=== PATIENT | female | born 1990 | race Caucasian/White ===

== ENCOUNTER 2017-05-31 12:55 | Emergency (ER) | payer MEDICAID ==
[2017-05-31 13:24] VITALS: BP 118/62
--- NOTE | 2017-05-31 13:42 | ER Document Report ---
ED Medical Screen (RME) - General Chief Complaint: Palpitations Stated Complaint: POSSIBLE HEART PALPITATIONS Time Seen by Provider: 05/31/17 13:21 Notes: Patient states she has not had a period in approximately 1 month. She states that she did find out that she was several weeks ago. She states today while walking she suddenly became very short of breath and had a heart racing. No history of DVTs or pulmonary embolisms. She has not had any significant abdominal pain or vaginal discharge or bleeding. She has not seen an AVIATION CONSULTANT for this at this time. TRAVEL OUTSIDE OF THE [place] IN LAST 30 DAYS: No - Related Data Allergies/Adverse Reactions: No Known Allergies Allergy (Verified 05/31/17 13:14) Past Medical History Neurological Medical History: Reports: Hx Migraine Renal/ Medical History: Reports: Hx Ovarian Cysts. Denies: Hx Peritoneal Dialysis Psychiatric Medical History: Reports: Hx Anxiety Past Surgical History: Reports: Hx Appendectomy, Hx Section - x3, Hx Orthopedic Surgery - right ankle - Immunizations Immunizations up to date: Yes Hx Diphtheria, Pertussis, Tetanus Vaccination: Yes Physical Exam - Vital signs Vitals: Temp Pulse Resp BP Pulse Ox 98.8 F 99 16 118/62 99 05/31/17 13:15 05/31/17 13:15 05/31/17 13:15 05/31/17 13:15 05/31/17 13:15 Course - Vital Signs Vital signs: Temp Pulse Resp BP Pulse Ox 98.8 F 99 16 118/62 99 05/31/17 13:15 05/31/17 13:15 05/31/17 13:15 05/31/17 13:15 05/31/17 13:15
[2017-05-31 14:02] LABS: ABSOLUTE LYMPHOCYTES (AUTO) 2.2 10^3/uL (0.5-4.7); ABSOLUTE MONOCYTES (AUTO) 0.6 10^3/uL (0.1-1.4); ABSOLUTE NEUT (AUTO) 10.8 10^3/uL (1.7-8.2); BASOPHILS % (AUTO) 0.1 % (0-2); EOSINOPHILS % (AUTO) 0.3 % (0-6); HEMATOCRIT 28.4 % (36.0-47.0); HEMOGLOBIN 9.4 g/dL (12.0-15.5); HGB HCT DIFFERENCE -0.2; LYMPHOCYTES % (AUTO) 16.1 % (13-45); MEAN CORPUSCULAR HEMOGLOBIN 26.3 pg (27.0-33.4); MEAN CORPUSCULAR HGB CONC 33.1 g/dL (32.0-36.0); MEAN CORPUSCULAR VOLUME 80 fl (80-97); MONOCYTES % (AUTO) 4.3 % (3-13); RED BLOOD COUNT 3.56 10^6/uL (3.72-5.28); RED CELL DISTRIBUTION WIDTH 13.7 % (11.5-14.0); SEGMENTED NEUTROPHILS % (AUTO) 79.2 % (42-78); WHITE BLOOD COUNT 13.7 10^3/uL (4.0-10.5)
[2017-05-31 14:08] LABS: APPEARANCE,URINE SLIGHTLY-CLOUDY; BILIRUBIN,URINE NEGATIVE (NEGATIVE); GLUCOSE, URINE 50 mg/dL (NEGATIVE); KETONES,URINE TRACE mg/dL (NEGATIVE); LEUKOCYTE ESTERASE,URINE SMALL (NEGATIVE); NITRITE,URINE NEGATIVE (NEGATIVE); PROTEIN,URINE NEGATIVE (NEGATIVE); URINE SPECIFIC GRAVITY 1.018; UROBILINOGEN,URINE NEGATIVE mg/dL (<2.0)
[2017-05-31 14:18] LABS: ALANINE AMINOTRANSFERASE 15 U/L (9-52); ALBUMIN 3.4 g/dL (3.5-5.0); ALKALINE PHOSPHATASE 88 U/L (38-126); ANION GAP 9 (5-19); ASPARTATE AMINO TRANSFERASE 11 U/L (14-36); BILIRUBIN,DIRECT 0.2 mg/dL (0.0-0.4); BILIRUBIN,TOTAL 0.3 mg/dL (0.2-1.3); BLOOD UREA NITROGEN 6 mg/dL (7-20); CALCIUM 8.7 mg/dL (8.4-10.2); CARBON DIOXIDE 22 mmol/L (22-30); CHLORIDE 107 mmol/L (98-107); CREATININE RESULT 0.49 mg/dL (0.52-1.25); GLUCOSE 107 mg/dL (75-110); POTASSIUM 4.3 mmol/L (3.6-5.0); SODIUM 138.4 mmol/L (137-145); TOTAL PROTEIN 6.1 g/dL (6.3-8.2)
[2017-05-31] MEDS ORDERED: NORMAL SALINE 1000 ML 1,000 ML IV ONE (15:12)
[2017-05-31] MEDS ORDERED: PRENATAL VITAMIN W-O CA NO5/FE FUMARATE/FA CAPSULE PO ONE (15:31)
--- NOTE | 2017-05-31 17:35 | RADIOLOGY REPORT (SQ) ---
EXAM DESCRIPTION: U/S OB 14+ TRNABD 1GES W/O DOP COMPLETED DATE/TIME: 05/31/2017 5:07 pm REASON FOR STUDY: , no idea how far along COMPARISON: None. TECHNIQUE: Static and Dynamic grayscale imaging performed of gravid uterus using transabdominal appr oac. Additional selected color Doppler and spectral images recorded. All stored on PACS. LIMITATIONS: Study is limited due to the advanced gestational age and position. FINDINGS: EGA: 32 weeks 4 days SWAPNIL: 07/22/2007 EFW: 2130 +/- 315 g PERCENTILE: 90 ROSE: 14.9 PLACENTA: Anterior PRESENTATION: Cephalic. ANATOMY: HEART RATE: 131 beats per minute. FOUR CHAMBER HEART: Not visualized THREE VESSEL CORD: Yes. CORD INSERTION: Visualized. KIDNEYS AND BLADDER: Visualized. Appear normal. STOMACH: Visualized. Appears normal. SPINE: Normal as visualized. BRAIN AND LATERAL VENTRICLES: Not visualized OTHER: No other significant finding. MATERNAL ADNEXA: Maternal ovaries not visualized. CERVICAL LENGTH: 5.0 cm Closed. OTHER: No other significant finding. IMPRESSION: LIVING INTRAUTERINE . ESTIMATED GESTATIONAL AGE 32 weeks 4 days NO VISUALIZED ANOMALIES. Trimester of : Third trimester - 28 weeks to delivery. TECHNICAL DOCUMENTATION: JOB ID: [id number] [email or web address]- All Rights Reserved
--- NOTE | 2017-05-31 17:41 | ER Document Report ---
ED General - General Chief Complaint: Palpitations Stated Complaint: POSSIBLE HEART PALPITATIONS Time Seen by Provider: 05/31/17 13:21 Mode of Arrival: Ambulatory Information source: Patient Notes: Patient is a 26-year-old female who presents to the ER today for shortness of breath, racing heart rate and feeling shaky. Patient does not know how far along she is but states that her last menstrual period was October 31. She has not had any care nor she taking any vitamins. She denies any history of pulmonary embolism or DVT, recent travel. TRAVEL OUTSIDE OF THE [place] IN LAST 30 DAYS: No - Related Data Allergies/Adverse Reactions: No Known Allergies Allergy (Verified 05/31/17 13:14) Past Medical History - General Information source: Patient - Social History Smoking Status: Unknown if Ever Smoked Family History: Reviewed & Not Pertinent Patient has suicidal ideation: No Patient has homicidal ideation: No Neurological Medical History: Reports: Hx Migraine Renal/ Medical History: Reports: Hx Ovarian Cysts. Denies: Hx Peritoneal Dialysis Psychiatric Medical History: Reports: Hx Anxiety Past Surgical History: Reports: Hx Appendectomy, Hx Section - x3, Hx Orthopedic Surgery - right ankle - Immunizations Immunizations up to date: Yes Hx Diphtheria, Pertussis, Tetanus Vaccination: Yes Review of Systems - Review of Systems Constitutional: No symptoms reported EENT: No symptoms reported Cardiovascular: See HPI Respiratory: No symptoms reported Gastrointestinal: No symptoms reported Genitourinary: No symptoms reported Female Genitourinary: See HPI Musculoskeletal: No symptoms reported Skin: No symptoms reported Hematologic/Lymphatic: No symptoms reported Neurological/Psychological: No symptoms reported Physical Exam - Vital signs Vitals: Temp Pulse Resp BP Pulse Ox 98.8 F 99 16 118/62 99 05/31/17 13:15 05/31/17 13:15 05/31/17 13:15 05/31/17 13:15 05/31/17 13:15 - Notes Notes: PHYSICAL EXAMINATION: GENERAL: Well-appearing and in no acute distress. HEAD: Atraumatic, normocephalic. EYES: Pupils equal round and reactive to light, extraocular movements intact, sclera anicteric, conjunctiva are normal. NECK: Normal range of motion, supple without lymphadenopathy LUNGS: CTAB and equal. No wheezes rales or rhonchi. HEART: Regular rate and rhythm without murmurs ABDOMEN: gravid abdomen, no tenderness. No guarding, no rebound BACK: no vertebral tenderness, normal ROM GI/: no CVA tenderness EXTREMITIES: Normal range of motion, no pitting edema. No cyanosis. NEUROLOGICAL: Cranial nerves grossly intact. Normal sensory/motor exams. PSYCH: Normal mood, normal affect. SKIN: Warm, Dry, normal turgor, no rashes or lesions noted Course - Re-evaluation Re-evalutation: 05/31/17 17:39 Plan reveals that patient is 32 weeks with a closed cervix. I did advise patient on normal symptoms of . I did prescribe vitamins for patient as her hemoglobin is 9.4. I do believe this is anemia in . 05/31/17 17:39 - Vital Signs Vital signs: Temp Pulse Resp BP Pulse Ox 98.8 F 99 16 118/62 99 05/31/17 13:15 05/31/17 13:15 05/31/17 13:15 05/31/17 13:15 05/31/17 13:15 - Laboratory Result Diagrams: 05/31/17 13:45 05/31/17 13:45 Laboratory results interpreted by me: 05/31/17 05/31/17 05/31/17 13:45 13:45 13:45 WBC 13.7 H RBC 3.56 L Hgb 9.4 L Hct 28.4 L MCH 26.3 L Seg Neutrophils % 79.2 H Absolute Neutrophils 10.8 H BUN 6 L Creatinine 0.49 L AST 11 L Total Protein 6.1 L Albumin 3.4 L Beta HCG, Quant Urine Glucose (UA) 50 H Urine Ketones TRACE H Ur Leukocyte Esterase SMALL H 05/31/17 13:45 WBC RBC Hgb Hct MCH Seg Neutrophils % Absolute Neutrophils BUN Creatinine AST Total Protein Albumin Beta HCG, Quant 08487.00 H Urine Glucose (UA) Urine Ketones Ur Leukocyte Esterase Discharge - Discharge Clinical Impression: Anemia affecting Qualifiers: Trimester: third trimester Qualified Code(s): O99.013 - Anemia complicating , third trimester Condition: Stable Disposition: HOME, SELF-CARE Additional Instructions: Return immediately for any new or worsening symptoms. Follow up with women's health, call tomorrow to make followup appointment. Prescriptions: Pnv No.121/Iron/Folic Acid [ Multivitamin Tablet] 1 each PO DAILY #30 tablet Referrals: [facility] [Provider Group] - Follow up as needed
--- NOTE | 2017-06-01 16:23 | EKG REPORT ---
SEVERITY:- NORMAL ECG - SINUS RHYTHM : Confirmed by: Hoda Cooper MD 01-Jun-2017 16:22:32
== END 2017-05-31 18:03 | disposition home or self-care (01) ==
LOC: ER 12:55
DX: O99.013 Anemia complicating pregnancy, third trimester (principal); D64.9 Anemia, unspecified; O09.33 Supervision of pregnancy with insufficient antenatal care, third trimester; Z90.49 Acquired absence of other specified parts of digestive tract; Z3A.32 32 weeks gestation of pregnancy; Z87.42 Personal history of other diseases of the female genital tract
CPT/HCPCS: 93005; 99285; 36415; 84702; 85025; 80053; 81001; 76805; 93010; J7030

== ENCOUNTER 2017-07-19 09:00 | Outpatient (CLI) | payer MEDICAID ==
[2017-07-19 09:37] LABS: APPEARANCE,URINE CLOUDY; BILIRUBIN,URINE NEGATIVE (NEGATIVE); GLUCOSE, URINE NEGATIVE (NEGATIVE); KETONES,URINE NEGATIVE (NEGATIVE); LEUKOCYTE ESTERASE,URINE SMALL (NEGATIVE); NITRITE,URINE NEGATIVE (NEGATIVE); PROTEIN,URINE NEGATIVE (NEGATIVE); URINE SPECIFIC GRAVITY 1.015; UROBILINOGEN,URINE NEGATIVE mg/dL (<2.0)
[2017-07-19 09:53] LABS: URINE BARBITURATES SCREEN NEGATIVE; URINE METHADONE SCREEN NEGATIVE; URINE OPIATES LOW NEGATIVE; URINE PHENCYCLIDINE SCREEN NEGATIVE
--- NOTE | 2017-07-19 10:30 | Non Stress Test Report ---
Non Stress Test Datetime Report Generated by CPN: 07/19/2017 10:29 DEMOGRAPHIC EGA NST: 39.4 INDICATION Indication for Study: Ordered by Provider Indication for Study (NST) Other: LC MONITORING Monitor Explained: Monitor Explained; Test Explained; Patient Verbalized Understanding Time on Monitor: 07/19/2017 09:14 Time off Monitor: 07/19/2017 09:57 Time off Monitor: 07/19/2017 10:14 NST Duration: 43 NST INTERVENTIONS NST Interventions: PO Hydration; IV Fluids Physician Notified NST: Avery BABY A: [id number] BABY A Movement : Present Contraction Frequency : rare FHR Baseline : 140 Accelerations : 15X15 Decelerations : None Variability : Moderate 6-25bpm NST Review: Meets Criteria for Reactive NST NST Review and Verified By : Luis Avila [facility] NST Results: Reactive NST REPORT Report Trigger: Send Report
== END 2017-07-19 10:25 | disposition home or self-care (01) ==
LOC: LC 09:00
PROVIDERS: ATTEND Obstetrics & Gynecology
PROC: 4A1HXCZ Monitoring of Products of Conception, Cardiac Rate, External Approach (ICD-10-PCS; principal; 2017-07-19)
DX: O47.1 False labor at or after 37 completed weeks of gestation (principal); Z3A.39 39 weeks gestation of pregnancy
CPT/HCPCS: 59025; 80307; 81005

== ENCOUNTER 2017-07-21 01:04 | Inpatient (IN) | payer MEDICAID ==
[2017-07-21] MEDS ORDERED: OXYTOCIN 10 UNIT/ML VIAL ONE (01:26)
[2017-07-21] MEDS ORDERED: MIDAZOLAM 2 MG/2 ML INJ ONE ×2 (01:27→03:03)
[2017-07-21] MEDS ORDERED: FENTANYL CITRATE INJ/PF 100 MCG/2 ML AMPUL ONE (01:27)
[2017-07-21] MEDS ORDERED: PHENYLEPHRINE HCL INJ/PF 10 MG/1 ML SDV ONE (01:27)
[2017-07-21] MEDS ORDERED: OXYTOCIN/NORMAL SALINE 20 UNIT/1,000 ML RTUINJ ONE (01:27)
[2017-07-21] MEDS ORDERED: ONDANSETRON HCL INJ/PF 4 MG/2 ML SDV ONE (01:28)
[2017-07-21] MEDS ORDERED: ACETAMINOPHEN 100 ML IV ONE (01:28)
[2017-07-21] MEDS ORDERED: CEFAZOLIN 2 GM/D5W RTU 2 GM/50 ML RTUPB IV ONE (01:49)
[2017-07-21] MEDS ORDERED: CITRIC ACID/SODIUM CITRATE ORAL SOLN 15 ML UDCUP ONE (01:49)
[2017-07-21 02:07] LABS: ABSOLUTE EOSINOPHILS # (AUTO) 0.1 10^3/uL (0.0-0.6); ABSOLUTE LYMPHOCYTES (AUTO) 2.9 10^3/uL (0.5-4.7); ABSOLUTE MONOCYTES (AUTO) 0.9 10^3/uL (0.1-1.4); ABSOLUTE NEUT (AUTO) 7.9 10^3/uL (1.7-8.2); BASOPHILS % (AUTO) 0.2 % (0-2); EOSINOPHILS % (AUTO) 0.7 % (0-6); HEMATOCRIT 32.9 % (36.0-47.0); HEMOGLOBIN 10.7 g/dL (12.0-15.5); HGB HCT DIFFERENCE -0.8; LYMPHOCYTES % (AUTO) 24.6 % (13-45); MEAN CORPUSCULAR HEMOGLOBIN 24.7 pg (27.0-33.4); MEAN CORPUSCULAR HGB CONC 32.5 g/dL (32.0-36.0); MEAN CORPUSCULAR VOLUME 76 fl (80-97); MONOCYTES % (AUTO) 7.4 % (3-13); RED BLOOD COUNT 4.31 10^6/uL (3.72-5.28); RED CELL DISTRIBUTION WIDTH 15.5 % (11.5-14.0); SEGMENTED NEUTROPHILS % (AUTO) 67.1 % (42-78); WHITE BLOOD COUNT 11.8 10^3/uL (4.0-10.5)
--- NOTE | 2017-07-21 03:37 | Brief Operative Note ---
BRIEF OPERATIVE REPORT DATE OF SURGERY: 07/21/17 TIME OF SURGERY: 03:30 PREOPERATIVE DIAGNOSIS: PROM, meconium, H/o c/s x 4, , H/o C/S x4, Non reassuring FHR tracing with minimal variability, Undesired Fertilty. POSTOPERATIVE DIAGNOSIS: CINDY - delivered SURGEON: BRANDY MURPHY FINDINGS: Normal uterus, normal tubes, normal ovaries. Weight 8#4oz (3730g), Apgars 8/9, rectus muscles adhered to subcutaneous tissue. Bladder adhesions and omental adhesions to uterus. Vertex presentation, no nuchal cord. IVF 2000ml, EBL 600ml, UOP 200ml COMPLICATIONS: None ESTIMATED BLOOD LOSS: 600ml TISSUE REMOVED OR ALTERED: placenta and cord sent to pathology TECHNICAL PROCEDURE: Repeat LTCS with BTL with filschie x 2 bilaterally
[2017-07-21] MEDS ORDERED: ACETAMINOPHEN 100 ML IV PRN (03:38)
[2017-07-21] MEDS ORDERED: ACETAMINOPHEN 325 MG TABLET PO PRN (03:38)
[2017-07-21] MEDS ORDERED: PROMETHAZINE HCL INJ 25 MG/1 ML VIAL IV PRN (03:38)
[2017-07-21] MEDS ORDERED: MEASLES,MUMPS&RUBELLA VACC/PF 0.5 ML VIAL SUBCUT PRN (03:38)
[2017-07-21] MEDS ORDERED: OXYTOCIN/NORMAL SALINE 20 UNIT/1,000 ML RTUINJ IV PRN (03:38)
[2017-07-21] MEDS ORDERED: DIPH/PERTUSS(ACELL)/TETANUS VAC/PF 0.5 ML SYR (>=10YO) IM PRN (03:38)
[2017-07-21] MEDS ORDERED: OXYCODONE-ACETAMINOPHEN 5-325 MG TABLET PO PRN (03:38)
[2017-07-21] MEDS ORDERED: DIPHENHYDRAMINE HCL 50 MG/ML VIAL ONE (04:16)
[2017-07-21] MEDS ORDERED: MORPHINE SULFATE 10 MG/ML INJ ONE (05:14)
--- NOTE | 2017-07-21 06:14 | Admission Physical ---
Datetime Report Generated by CPN: 07/21/2017 06:14 CURRENT ADMISSION Chief Complaint: Uterine Contractions; Suspected Ruptured Membranes Admit Plan: Admit to Unit; Initiate Section Protocol ALLERGIES Medication Allergies: No Medication Allergies: No Known Allergies (05/31/2017) Latex: No Latex Allergies OBSTETRICAL HISTORY EDC: 07/22/2017 00:00 : 5 Para: 3 Ectopic: 0 Livin Cesareans: 3 VBACs: 0 Multiple Births: 0 Gestational Diabetes: No Rh Sensitization: No Incompetent Cervix: No MIMI: No Infertility: No ART Treatment: No Uterine Anomaly: No IUGR: No Hx Previous C/S: No Macrosomia: No Hx Loss/Stillborn: No PIH: No Hx : No Placenta Previa/Abruption: No Depression/PP Depression: No PTL/PROM: No Post Hemorrhage: No Current Procedures: Ultrasound Obstetrical History Comments: 2009 baby girl failure to progress 2014 baby boy repeat 2015 baby girl repeat 2016 baby boy repeat SEE RECORDS Alcohol: No Marijuana : No Cocaine: No Other Illicit Drugs: No Cigarettes: Current Everyday Smoker. [id number] MEDICAL HISTORY Diabetes: No Blood Transfusion: No Pulmonary Disease (Asthma, TB): No Breast Disease: No Hypertension: No Handbag Stitcher Surgery: Yes Heart Disease: No Hosp/Surgery: Yes Autoimmune Disorder: No Anesthetic Complications: No Kidney Disease: No Abnormal Pap Smear: No Neuro/Epilepsy: No Psychiatric Disorders: No Other Medical Diseases: No Hepatitis/Liver Disease: No Significant Family History: No Varicosities/Phlebitis: No Trauma/Violence : No Thyroid Dysfunction: No Medical History Comments: smoker, c/s x3, limited PNC INFECTIOUS HISTORY Gonorrhea: No Genital Herpes: No Chlamydia: No Tuberculosis: No Syphilis: No Hepatitis: No HIV/AIDS Exposure: No Rash or Viral Illness: No HPV: No PHYSICAL EXAM General: Normal HEENT: Normal Neurologic: Normal Thyroid: Normal Heart: Normal Lungs: Normal Breast: Deferred Back: Normal Abdomen: Normal Genitourinary Exam: Normal Extremities: Normal DTRs: Normal Pelvic Type: Adequate Vital Signs: Reviewed VAGINAL EXAM Dilatation: 1 Effacement: 50 Station: -3 MEMBRANES Membranes: Ruptured Amniotic Fluid Color: Clear FETUS A EGA: 39.6 Monitoring: External US FHR- Baseline: 150 Variability: Minimal - Undetectable to <=5bpm Decelerations: None FHR Category: Category II Presentation: Vertex Admit Comment: 27yo [id number] at 39+6ega presents to the ER with contractions and PROM with meconium. REsponsed to OB Emergency in the ER with cvx exam c/w /-3. Meconium stained amniotic fluid. Datign by 32wks US. Smoker, No care prior to 37wks. Desires BTL. Title XX on chart at office. Admit to L_D and proceed with Repeat C/S x 4 with BTL. 2 Grams of Ancef. PLANS FOR LABOR AND DELIVERY Labor and Delivery: None Feeding Preference: Formula Benefit of Breast Feed Discussed: Yes Circumcision: Yes INFORMED CONSENT Informed Consent Obtained: Section Delivery; Risks, Benefits and Alternatives Discussed Signature: with User ID: [email or web address]
[2017-07-21] MEDS: HYDROMORPHONE HCL INJ/PF 2 MG/ML AMPULE IV PRN ×2 (06:21→12:05)
--- NOTE | 2017-07-21 06:29 | Delivery Summary ---
Del Sum A-C Datetime Report Generated by CPN: 07/21/2017 06:28 DELIVERY PERSONNEL DELIVERY PERSONNEL: [id number] Delivery Doctor:: Matilda Toure MD Anesthesiologist:: Deandre Garcia MD PYROMETER OPERATOR:: Malachi L Labor and Delivery Nurse:: Kamila Pearl RN Nursery Nurse:: Olinda Fung RN Accounting Clerks Supervisor/DIGITAL RESEARCH ANALYST: ST Treasure Accounting Clerks Supervisor/DIGITAL RESEARCH ANALYST: Roseanne Yap, TRIAGE ASSISTANT MATERNAL INFORMATION Delivery Anesthesia: Spinal Medications After Delivery: Pitocin Bolus-Please Comment Meds After Delivery Comment: pitocin 20 units/1000ml NSS two bags Estimated Blood Loss (ml): 600 Maternal Complications: Premature Rupture of Membranes LABOR SUMMARY EDC: 07/22/2017 00:00 No. Babies in Womb: 1 Attempted: No LABOR INFORMATION Reason for Induction: Not Applicable Oxytocin: N/A Group B Beta Strep: negative Antibiotics # of Doses: N/A Antibiotics Time of Last Dose: N/A Name of Antibiotic Given: N/A Steroids Given: None Reason Steroids Not Administered: Not Applicable MEMBRANES Membranes Rupture Method: Spontaneous Rupture of Membranes: 07/21/2017 00:30 Length of Rupture (hr): 2.20 Amniotic Fluid Color: Heavy Meconium Amniotic Fluid Amount: Moderate Amniotic Fluid Odor: Normal STAGES OF LABOR Stage 3 hr: 0 Stage 3 min: 1 CSECTION DELIVERY Secondary Indication: Repeat Elective CSection Urgency: Non-Scheduled CSection Incidence: Repeat Labor: N/A Elective: Elective CSection Incision: Lower Uterine Transverse BABY A INFORMATION Delivery Date/Time: 07/21/2017 02:42 Method of Delivery: Born in Route : No : N/A Forceps: N/A Vacuum Extraction: N/A Shoulder Dystocia : No PRESENTATION/POSITION BABY A Presentation: Cephalic Cephalic Presentation: Vertex Breech Presentation: N/A PLACENTA INFORMATION BABY A Placenta Delivery Time : 07/21/2017 02:43 Placenta Method of Delivery: Manual Removal Placenta Status: Delivered SCORES BABY A Heart Rate 1 min: >100 bpm Resp Effort 1 min: Good Cry Reflex Irritability 1 min: Cough or Sneeze or Pulls Away Muscle Tone 1 min: Active Motion Color 1 min: Blue/Pale Resuscitation Effort 1 min: Tactile Stimulation SCORE 1 MIN: 8 Heart Rate 5 min: >100 bpm Resp Effort 5 min: Good Cry Reflex Irritability 5 min: Cough or Sneeze or Pulls Away Muscle Tone 5 min: Active Motion Color 5 min: Body Braggs, Extremities Blue Resuscitation Effort 5 min: Tactile Stimulation SCORE 5 MIN: 9 INFANT INFORMATION BABY A Gestational Age at Delivery: 39.6 Gestational Status: Full Term- 39- 40.6 Weeks Outcome : Liveborn Infant Condition : Stable Infant Sex: Male WEIGHT/LENGTH BABY A Infant Birthweight (gm): 3730 Weight (lb): 8 Infant Weight (oz): 4 Infant Length (in): 20.00 Length (cm): 50.80 CORD INFORMATION BABY A No. Cord Vessels: 3 Nuchal Cord : N/A Cord Blood Taken: Yes-For Storage (Mom's Blood type +) Suction: Mouth ASSESSMENT BABY A Complications: None Physical Findings at Delivery: Within Normal Limits Skin to Skin: No
[2017-07-21] MEDS: KETOROLAC TROMETHAMINE INJ/PF 30 MG/1 ML SDV IV SCH ×3 (07:35→21:34)
[2017-07-21] MEDS: PRENATAL VITAMIN W-O CA NO5/FE FUMARATE/FA CAPSULE PO SCH (09:30)
[2017-07-21] MEDS: DOCUSATE SODIUM 100 MG CAPSULE PO SCH ×2 (09:30→17:54)
[2017-07-21] MEDS: OXYCODONE-ACETAMINOPHEN 5-325 MG TABLET PO PRN ×2 (09:30→19:43)
--- NOTE | 2017-07-21 09:56 | PDOC PROGRESS REPORT ---
Subjective-OB Subjective: Post Delivery Day: 27 year old. Denies any needs at this time Physical Exam (OB) Vital Signs: Temp Pulse Resp BP Pulse Ox 97.5 F 74 20 116/71 100 07/21/17 06:05 07/21/17 06:05 07/21/17 06:05 07/21/17 06:05 07/21/17 06:05 Intake & Output 07/20/17 07/21/17 07/22/17 06:59 06:59 06:59 Weight 81.8 kg - PIH/Pre-Eclampsia Clonus: Negative Headache: Absent Epigastric Pain: No Visual Changes: No - Incision: Well Approximated Closure Type: Surgical Glue - Abdomen Description: Tender, Round Hernia Present: No Bowel Sounds: Normoactive Flatus Presence: Absent Stool: No Fundal Description: Firm, Midline Fundal Height: u/u - u/2 Objective-Diagnostic Laboratory: 07/21/17 01:09 07/21/17 07/21/17 01:09 01:09 WBC 11.8 H RBC 4.31 Hgb 10.7 L Hct 32.9 L MCV 76 L MCH 24.7 L MCHC 32.5 RDW 15.5 H Plt Count 292 Seg Neutrophils % 67.1 Lymphocytes % 24.6 Monocytes % 7.4 Eosinophils % 0.7 Basophils % 0.2 Absolute Neutrophils 7.9 Absolute Lymphocytes 2.9 Absolute Monocytes 0.9 Absolute Eosinophils 0.1 Absolute Basophils 0.0 Blood Type A POSITIVE Antibody Screen NEGATIVE
[2017-07-21] MEDS: SIMETHICONE 80 MG TAB.CHEW PO PRN (20:52)
[2017-07-21] MEDS: IBUPROFEN 800 MG TABLET PO SCH (23:13)
[2017-07-22] MEDS: OXYCODONE-ACETAMINOPHEN 5-325 MG TABLET PO PRN ×3 (04:48→20:04)
[2017-07-22] MEDS: IBUPROFEN 800 MG TABLET PO SCH ×4 (05:31→23:03)
[2017-07-22 06:43] LABS: HEMATOCRIT 26.7 % (36.0-47.0); HGB HCT DIFFERENCE 0.3; MEAN CORPUSCULAR HEMOGLOBIN 25.5 pg (27.0-33.4); MEAN CORPUSCULAR HGB CONC 33.6 g/dL (32.0-36.0); MEAN CORPUSCULAR VOLUME 76 fl (80-97); RED BLOOD COUNT 3.51 10^6/uL (3.72-5.28); RED CELL DISTRIBUTION WIDTH 15.1 % (11.5-14.0); WHITE BLOOD COUNT 10.9 10^3/uL (4.0-10.5)
[2017-07-22] MEDS: SIMETHICONE 80 MG TAB.CHEW PO PRN ×2 (08:06→18:23)
[2017-07-22] MEDS: DOCUSATE SODIUM 100 MG CAPSULE PO SCH ×2 (09:32→18:19)
[2017-07-22] MEDS: PRENATAL VITAMIN W-O CA NO5/FE FUMARATE/FA CAPSULE PO SCH (09:33)
--- NOTE | 2017-07-22 11:33 | PDOC PROGRESS REPORT ---
Subjective-OB Subjective: Post Delivery Day: 27 year old. Denies any needs at this time. Pt doing well, she is ambulatory, reports light bleeding, regular diet, voiding without difficulty and +flatus. She has no complaints. Physical Exam (OB) Vital Signs: Temp Pulse Resp BP Pulse Ox 98.3 F 83 16 121/70 100 07/22/17 08:02 07/22/17 08:02 07/22/17 08:02 07/22/17 08:02 07/22/17 08:02 Intake & Output 07/21/17 07/22/17 07/23/17 06:59 06:59 06:59 Intake Total 1040 Output Total 1050 Balance -10 Weight 81.8 kg - Dressing Removed: Yes Incision: Open, Well Approximated Closure Type: Surgical Glue - Lochia Lochia Amount: Scant < 10 ml Lochia Color: Rubra/Red - Abdomen Description: Tender, Soft Hernia Present: No Fundal Description: Firm, Midline Fundal Height: u/u - u/2 Objective-Diagnostic Laboratory: 07/22/17 05:59 07/22/17 05:59 WBC 10.9 H RBC 3.51 L Hgb 9.0 L Hct 26.7 L MCV 76 L MCH 25.5 L MCHC 33.6 RDW 15.1 H Plt Count 225 Assessment and Plan(PN) - Assessment and Plan (1) Status post repeat low transverse section Is this a current diagnosis for this admission?: Yes (2) Insufficient antepartum care Is this a current diagnosis for this admission?: Yes (3) Is this a current diagnosis for this admission?: Yes (4) Smoker Is this a current diagnosis for this admission?: Yes - Time Spent with Patient Time with patient: Less than 15 minutes Medications reviewed and adjusted accordingly: Yes - Disposition Anticipated Discharge: Home Within: within 24 hours
--- NOTE | 2017-07-22 22:18 | Operative Report ---
Operative Report DATE OF SURGERY: 07/21/17 PREOPERATIVE DIAGNOSIS: PROM, meconium, H/o c/s x 3, , H/o C/S x4, Non reassuring FHR tracing with minimal variability, Undesired Fertilty. POSTOPERATIVE DIAGNOSIS: CINDY - delivered OPERATION: Repeat LTCS with BTL with filschie x 2 bilaterally SURGEON: BRANDY MURPHY ANESTHESIA: Spinal TISSUE REMOVED OR ALTERED: placenta and cord sent to pathology COMPLICATIONS: None ESTIMATED BLOOD LOSS: 600ml INTRAOPERATIVE FINDINGS: Normal uterus, normal tubes, normal ovaries. Weight 8# 4oz (3730g), Apgars 8/9, rectus muscles adhered to subcutaneous tissue. Bladder adhesions and omental adhesions to uterus. Vertex presentation, no nuchal cord. IVF 2000ml, EBL 600ml, UOP 200ml PROCEDURE: Anesthesia provider: [Radha HARDY, Malachi Forbes CRNA] Urine output: [200ml] IV fluids: [2000ml] Indications: [27yo at 39+5ega dated by US at 32wks presents via ER as OB emergency due to PROM with meconium and abdominal pain. Upon evaluation in the ER cervical dilation 1 cm and meconium stained fluid noted with patient in obvious pain. Patient brought to L&D (Called report to L&D while in ER and OR team notified need for urgent section) and placed on the monitor with non reactive NST and decreased variability. THe risks, benefits, and alternatives were reviewed again (preop was done for her scheduled section on 07/18 by myself in the office). SHe desired to proceed with Repeat section and BTL.] Procedure: The patient was taken to the operating room where spinal anesthesia was obtained and found to be adequate. She was then prepped and draped in the normal sterile fashion and placed in the dorsal supine position with a leftward tilt. A Pfannenstiel skin incision was then made and carried through to the underlying layers of the fascia with the scalpel. The fascia was incised in the midline and the incision extended laterally with the Drummond scissors. The superior aspect of the fascial incision was then grasped with Gauri clamps elevated and the underlying rectus muscles dissected off [bluntly]. Attention was then turned to the inferior aspect of the fascial incision which in a similar fashion was grasped, tented up with William clamps, and the rectus muscles dissected off [bluntly]. The rectus muscles were then in the midline and the peritoneum at the amount identified and entered [bluntly]. The peritoneal incision was then extended superiorly and inferiorly with good visualization of the bladder. The bladder blade was inserted and the vesicouterine peritoneum identified grasped with Egyptian pickups and entered sharply with the Metzenbaum scissors. This incision was then extended laterally with the Metzenbaum scissors and a bladder flap created digitally. The bladder blade was then reinserted and the lower uterine segment incised in a transverse fashion with the scalpel. The uterine incision was then extended bluntly. The bladder blade was removed and the 's head was delivered from cephalic presentation atraumatically. The nose and mouth were suctioned and the cord doubly clamped and cut. And the was handed off to waiting pediatricians. The placenta was then delivered spontaneously and the uterus exteriorized and cleared of all clots and debris. The uterine incision was then repaired with 1- 0 Vicryl in a running locked fashion. A second layer of the same suture was used to obtain hemostasis via imbrication of the initial layer. The bladder flap was then repaired with 3-0 chromic in a running fashion. The uterus was returned to the patient's abdomen and Interceed was placed overlying the uterine incision to prevent adhesions. The right fallopian tube was followed out to the fimbriated end and Filschie clip x 2 were placed in the mid ampullary portion of the fallopian tube. This procedure was repeated on the left fallopian tube thus completing bilateral tubal occlusion. The gutters were cleared of all clots and debris. All operative sites were noted to be hemostatic. The fascia was reapproximated with 0 Vicryl in a running fashion from each lateral edge to the midline. The skin was closed with 3-0 Monocryl in a running subcuticular fashion with overlying Dermabond for additional dressing as well as wound closure. The patient tolerated the procedure well. Sponge lap needle and instrument counts are correct times 2. 2 g of Ancef were given prior to skin incision. The patient was taken to the recovery area awake and in stable condition.
[2017-07-23] MEDS: IBUPROFEN 800 MG TABLET PO SCH ×2 (06:01→12:04)
[2017-07-23] MEDS: OXYCODONE-ACETAMINOPHEN 5-325 MG TABLET PO PRN (06:02)
[2017-07-23] MEDS: SIMETHICONE 80 MG TAB.CHEW PO PRN (06:04)
--- NOTE | 2017-07-23 07:47 | PDOC PROGRESS REPORT ---
Subjective-OB Subjective: Post Delivery Day: 27 year old. Denies any needs at this time OOB to nursery, doing well, bottle feeding, voiding Physical Exam (OB) Vital Signs: Temp Pulse Resp BP Pulse Ox 98.0 F 76 16 113/67 99 07/23/17 04:21 07/23/17 04:21 07/23/17 04:21 07/23/17 04:21 07/23/17 04:21 Intake & Output 07/22/17 07/23/17 07/24/17 06:59 06:59 06:59 Intake Total 1040 Output Total 1050 Balance -10 - PIH/Pre-Eclampsia Clonus: Negative Headache: Absent Epigastric Pain: No Visual Changes: No - Dressing Removed: Yes Incision: Well Approximated Closure Type: Surgical Glue - Lochia Lochia Amount: Scant < 10 ml Lochia Color: Rubra/Red - Abdomen Description: Soft, Round Hernia Present: No Fundal Description: Firm, Midline Fundal Height: u/u - u/2 Objective-Diagnostic Laboratory: 07/22/17 05:59 Assessment and Plan(PN) - Assessment and Plan (1) Anemia Qualifiers: Anemia type: iron deficiency Is this a current diagnosis for this admission?: Yes (2) Status post repeat low transverse section Is this a current diagnosis for this admission?: Yes (3) Smoker Is this a current diagnosis for this admission?: Yes (4) Insufficient antepartum care Is this a current diagnosis for this admission?: Yes (5) Delivery by elective caesarean section Is this a current diagnosis for this admission?: Yes - Time Spent with Patient Medications reviewed and adjusted accordingly: Yes - Disposition Anticipated Discharge: Home Within: within 24 hours
--- NOTE | 2017-07-23 07:51 | PDOC DISCHARGE SUMMARY ---
Final Diagnosis Discharge Date: 07/23/17 - Final Diagnosis (1) Anemia Is this a current diagnosis for this admission?: Yes (2) Status post repeat low transverse section Is this a current diagnosis for this admission?: Yes (3) Smoker Is this a current diagnosis for this admission?: Yes (4) Insufficient antepartum care Is this a current diagnosis for this admission?: Yes (5) Delivery by elective caesarean section Is this a current diagnosis for this admission?: Yes Discharge Data - Discharge Medication Home Medications: Ibuprofen [Motrin 800 mg Tablet] 800 mg PO Q6 #60 tablet 07/23/17 Oxycodone HCl/Acetaminophen [Percocet 5-325 mg Tablet] 1 tab PO Q4HP PRN #30 tablet 07/23/17 Pnv W-O Ca No5/Fe Fumarate/FA [-U Multiple Vitamin Capsule] 1 cap PO DAILY capsule 07/23/17 Reason(s) for Admission: Ceasarean Section-Repeat Procedures: NST, Ultrasound Intrapartum Procedure(s): : Low Cervical, Transverse - Diagnosis Test Laboratory: Temp Pulse Resp BP Pulse Ox 98.0 F 76 16 113/67 99 07/23/17 04:21 07/23/17 04:21 07/23/17 04:21 07/23/17 04:21 07/23/17 04:07/21/17 07/22/17 01:09 05:59 RBC 4.31 3.51 L Hgb 10.7 L 9.0 L Hct 32.9 L 26.7 L - Discharge information/Instructions Discharge Activity: Balance Activity w/Rest, No Lifting Over 10 Pounds, No Lifting/Push/Pulling, Pelvic Rest, No tub bath Discharge Diet: As Tolerated, Regular Disposition: HOME, SELF-CARE Follow up with: [facility] in: 1, 5, Days, Weeks
[2017-07-23] MEDS: DOCUSATE SODIUM 100 MG CAPSULE PO SCH (10:51)
[2017-07-23] MEDS: PRENATAL VITAMIN W-O CA NO5/FE FUMARATE/FA CAPSULE PO SCH (10:51)
[2017-07-23 11:12] VITALS: BP 122/78
== END 2017-07-23 12:00 | disposition home or self-care (01) | DRG 766 ==
LOC: LC 01:04 → LR 01:14 → 2N 05:40
PROVIDERS: ADMIT Student in an Organized Health Care Education/Training Program; ATTEND Student in an Organized Health Care Education/Training Program
PROC: 10D00Z1 Extraction of Products of Conception, Low, Open Approach (ICD-10-PCS; principal; 2017-07-21)
PROC: 4A1HXCZ Monitoring of Products of Conception, Cardiac Rate, External Approach (ICD-10-PCS; 2017-07-21)
PROC: 3E0234Z Introduction of Serum, Toxoid and Vaccine into Muscle, Percutaneous Approach (ICD-10-PCS; 2017-07-23)
DX: O34.211 Maternal care for low transverse scar from previous cesarean delivery (principal); O77.0 Labor and delivery complicated by meconium in amniotic fluid; O99.334 Smoking (tobacco) complicating childbirth; O42.02 Full-term premature rupture of membranes, onset of labor within 24 hours of rupture; F17.200 Nicotine dependence, unspecified, uncomplicated; Z3A.39 39 weeks gestation of pregnancy; Z37.0 Single live birth; Z23 Encounter for immunization
CPT/HCPCS: 1961; 36415; 85025; 85027; 86592; 86850; 86900; 86901; 88307; 90715; 94799; J0131; J0690; J1170; J1200; J1885; J2250; J2270; J2370; J2405; J2590; J3010; J3490

== ENCOUNTER 2017-08-10 07:53 | Emergency (ER) | payer MEDICAID ==
[2017-08-10] MEDS ORDERED: DEXAMETHASONE SOD PHOS INJ 10 MG/1 ML VIAL IM ONE (08:57)
[2017-08-10] MEDS ORDERED: LIDOCAINE 5% (700 MG) TRANSDERMAL ADH..PATCH TP ONE (08:58)
--- NOTE | 2017-08-10 09:06 | ER Document Report ---
HPI - HPI Pain Level: 4 Notes: Patient is a 27-year-old female who presents ED complaining of right lower back pain times several days. Patient states that she did have a a couple weeks ago and has had back pain with previous c-sections. patient states that the pain worse with certain twisting movements. Patient states that the pain does not radiate. She still eating and drink without problems. She is urinating without any difficulties and having normal bowel movements. Denies any surgical history or recent procedures to her lower back otherwise. Patient denies any other significant past medical history. Denies any drug allergies. Denies any recent illness. Patient states that she is not breast-feeding. The pain is not constant and she is able to find some relief with laying down and conservative measures. Denies injury. Denies any headache, fever,neck pain, URI, sore throat, chest pain, palpitations, syncope, cough, shortness of breath , wheeze, dyspnea, abdominal pain, nausea/vomiting/diarrhea, urinary retention, dysuria, hematuria, loss of control of bowel or bladder, numbness/tingling, saddle anesthesia, muscle paralysis/weakness, or rash. Denies IV drug use. - ROS Notes: REVIEW OF SYSTEMS: CONSTITUTIONAL : Denies fever, chills, or sweats. Denies recent illness. EENT: Denies eye, ear, throat, or mouth pain or symptoms. Denies nasal or sinus congestion or discharge. Denies throat, tongue, or mouth swelling or difficulty swallowing. CARDIOVASCULAR: Denies chest pain. Denies palpitations or racing or irregular heart beat. Denies ankle edema. RESPIRATORY: Denies cough, cold, or chest congestion. Denies shortness of breath, difficulty breathing, or wheezing. GASTROINTESTINAL: Denies abdominal pain or distention. Denies nausea, vomiting , or diarrhea. Denies blood in vomitus, stools, or per rectum. Denies black, tarry stools. Denies constipation. GENITOURINARY: Denies difficulty urinating, painful urination, burning, frequency, blood in urine, or discharge. FEMALE GENITOURINARY: Denies vaginal bleeding, heavy or abnormal periods, irregular periods. Denies vaginal discharge or odor. MUSCULOSKELETAL: see hpi SKIN: Denies rash, lesions or sores. NEUROLOGICAL: Denies confusion or altered mental status. Denies passing out or loss of consciousness. Denies dizziness or lightheadedness. Denies headache. Denies weakness or paralysis or loss of use of either side. Denies problems with gait or speech. Denies sensory loss, numbness, or tingling. ALL OTHER SYSTEMS REVIEWED AND NEGATIVE. Dictation was performed using [employer] voice recognition software - CARDIOVASCULAR Cardiovascular: DENIES: Chest pain - REPRODUCTIVE Reproductive: DENIES: : - DERM Skin Color: Normal Past Medical History - Social History Smoking Status: Unknown if Ever Smoked Chew tobacco use (# tins/day): No Frequency of alcohol use: None Drug Abuse: None Family History: Reviewed & Not Pertinent Neurological Medical History: Reports: Hx Migraine Renal/ Medical History: Reports: Hx Ovarian Cysts. Denies: Hx Peritoneal Dialysis Psychiatric Medical History: Reports: Hx Anxiety Past Surgical History: Reports: Hx Appendectomy, Hx Section - x4, most recent 07/2017, Hx Orthopedic Surgery - right ankle, Hx Tubal Ligation - Immunizations Immunizations up to date: Yes Hx Diphtheria, Pertussis, Tetanus Vaccination: Yes Vertical Provider Document - CONSTITUTIONAL Agree With Documented VS: Yes Notes: PHYSICAL EXAMINATION: GENERAL: Well-appearing, well-nourished and in no acute distress. A&Ox4 HEAD: Atraumatic, normocephalic. EYES: Pupils equal round and reactive to light, extraocular movements intact, sclera anicteric, conjunctiva are normal. NECK: Normal range of motion, supple without lymphadenopathy LUNGS: Breath sounds clear to auscultation bilaterally and equal. No wheezes rales or rhonchi. HEART: Regular rate and rhythm without murmurs, rubs, gallops. ABDOMEN: Soft, nontender, nondistended abdomen. No guarding, no rebound. No masses appreciated. Normal bowel sounds present. No CVA tenderness bilaterally. No pulsatile mass Musculoskeletal: LE's b/l: FROM to passive/active. Strength 5+/5. Back: + tenderness to the Rt L-paraspinal mm. FROM to passive/active. Strength 5+/5. No SI jt tenderness. No step-offs, erythema, abrasion, laceration, abscess, streaks, or discharge. No other bony tenderness. Extremities: No cyanosis, clubbing, or edema b/l. Peripheral pulses 2+. Capillary refill less than 3 seconds. NEUROLOGICAL: Cranial nerves grossly intact. Normal speech, normal gait. Normal sensory, motor exams PSYCH: Normal mood, normal affect. SKIN: Warm, Dry, normal turgor, no rashes or lesions noted. - INFECTION CONTROL TRAVEL OUTSIDE OF THE [place] IN LAST 30 DAYS: No - RESPIRATORY O2 Sat by Pulse Oximetry: 99 Course - Re-evaluation Re-evalutation: 08/10/17 09:13 Patient is an afebrile, well-hydrated, 27-year-old female who presents the ED with the right lower back pain, suspect back strain based on H&P today. Vitals are stable. PE is otherwise unremarkable for any focal neurological deficits. No imaging warranted at this time. Toradol 30 mg given IM along with a Lidoderm patch being placed. Low suspicion for any meningitis, fracture, expanding/ruptured AAA, cauda equina syndrome, epidural mass lesion/abscess, herniated disc causing severe spinal stenosis, or other systemic infection at this time. Patient is aware that her condition can change from initial presentation and that she needs monitor symptoms closely for any acute changes. I will send her with a prescription for naproxen and baclofen that she may use as directed. Patient is not breast-feeding. Conservative measures for symptoms otherwise. Recheck with your PCM this week. Consider consult with orthopedics and physical therapy with ongoing/worsening symptoms. Return to the ED with any worsening/concerning symptoms otherwise as reviewed in discharge. Patient is in agreement. - Vital Signs Vital signs: Temp Pulse Resp BP Pulse Ox 97.5 F 97 14 118/68 99 08/10/17 07:58 08/10/17 07:58 08/10/17 07:58 08/10/17 07:58 08/10/17 07:58 Discharge - Discharge Clinical Impression: Low back pain Qualifiers: Chronicity: acute Back pain laterality: right Sciatica presence: without sciatica Qualified Code(s): M54.5 - Low back pain Condition: Stable Disposition: HOME, SELF-CARE Instructions: Ice Packs ([facility]), Low Back Pain ([facility]), Muscle Strain ([facility]), Stretching Exercises for the Back ([facility]), Warm Packs ([facility]) Additional Instructions: Rest, Ice Tylenol/ibuprofen as needed Light stretches daily Strength exercises as able Moist heat and massage may help F/u with your PCP in 2-3 days for a recheck Consider consult(s) with Orthopedics/physical therapy for ongoing/worsening symptoms Return to the ED with any worsening symptoms and/or development of fever, headache, chest pain, palpitations, syncope, shortness of breath, trouble breathing, abdominal pain, n/v/d, blood in stool/urine, loss of control of bowel /bladder, urinary retention, muscle weakness/paralysis, saddle anesthesia, numbness/tingling, or other worsening symptoms that are concerning to you. Prescriptions: Baclofen [Baclofen 10 mg Tablet] 5 mg PO BID PRN #10 tablet PRN Reason: Naproxen 500 mg PO BID PRN #30 tablet PRN Reason: Referrals: CRIS HENRY MD [Primary Care Provider] - Follow up as needed [facility] [Provider Group] - Follow up as needed
[2017-08-10 09:12] LABS: APPEARANCE,URINE SLIGHTLY-CLOUDY; BILIRUBIN,URINE NEGATIVE (NEGATIVE); GLUCOSE, URINE NEGATIVE (NEGATIVE); KETONES,URINE NEGATIVE (NEGATIVE); LEUKOCYTE ESTERASE,URINE SMALL (NEGATIVE); NITRITE,URINE NEGATIVE (NEGATIVE); PROTEIN,URINE NEGATIVE (NEGATIVE); URINE SPECIFIC GRAVITY 1.025; UROBILINOGEN,URINE NEGATIVE mg/dL (<2.0)
[2017-08-10 09:51] VITALS: BP 121/70
== END 2017-08-10 09:30 | disposition home or self-care (01) ==
LOC: ER 07:53
DX: O90.89 Other complications of the puerperium, not elsewhere classified (principal); M54.5 Low back pain; Z98.890 Other specified postprocedural states
CPT/HCPCS: 99283; 96372; 81001; J3490; J1100

== ENCOUNTER 2017-11-03 07:33 | Emergency (ER) | payer MEDICAID ==
[2017-11-03 07:46] VITALS: BP 115/76
[2017-11-03] MEDS ORDERED: GABAPENTIN 300 MG CAPSULE PO ONE (08:06)
--- NOTE | 2017-11-03 08:12 | ER Document Report ---
ED General - General Chief Complaint: Ankle Pain Stated Complaint: RIGHT ANKLE PAIN Time Seen by Provider: 11/03/17 07:57 Mode of Arrival: Ambulatory Information source: Patient Notes: 27-year-old female who had an ankle fusion 2012 presents with complaints of right ankle pain.. Patient denies any trauma denies injuring it, she notes this happens every time the weather changes and gets cold. Patient notes tingling sensation in her feet denies a history of diabetes TRAVEL OUTSIDE OF THE [place] IN LAST 30 DAYS: No - HPI Onset: This morning Onset/Duration: Sudden Quality of pain: Sharp Severity: Mild Pain Level: 1 Associated symptoms: Other Exacerbated by: Denies Relieved by: Denies Similar symptoms previously: No Recently seen / treated by doctor: No - Related Data Allergies/Adverse Reactions: No Known Allergies Allergy (Verified 11/03/17 07:37) Past Medical History - Social History Smoking Status: Never Smoker Cigarette use (# per day): No Chew tobacco use (# tins/day): No Smoking Education Provided: No Family History: Reviewed & Not Pertinent Neurological Medical History: Reports: Hx Migraine Renal/ Medical History: Reports: Hx Ovarian Cysts. Denies: Hx Peritoneal Dialysis Psychiatric Medical History: Reports: Hx Anxiety Past Surgical History: Reports: Hx Appendectomy, Hx Section - x3, Hx Orthopedic Surgery - right ankle, Hx Tubal Ligation - Immunizations Immunizations up to date: Yes Hx Diphtheria, Pertussis, Tetanus Vaccination: Yes Review of Systems - Review of Systems Notes: REVIEW OF SYSTEMS: CONSTITUTIONAL : Denies fever, chills, or sweats. Denies recent illness. EENT: Denies eye, ear, throat, or mouth pain or symptoms. Denies nasal or sinus congestion or discharge. Denies throat, tongue, or mouth swelling or difficulty swallowing. CARDIOVASCULAR: Denies chest pain. Denies palpitations or racing or irregular heart beat. Denies ankle edema. RESPIRATORY: Denies cough, cold, or chest congestion. Denies shortness of breath, difficulty breathing, or wheezing. GASTROINTESTINAL: Denies abdominal pain or distention. Denies nausea, vomiting , or diarrhea. Denies blood in vomitus, stools, or per rectum. Denies black, tarry stools. Denies constipation. GENITOURINARY: Denies difficulty urinating, painful urination, burning, frequency, blood in urine, or discharge. FEMALE GENITOURINARY: Denies vaginal bleeding, heavy or abnormal periods, irregular periods. Denies vaginal discharge or odor. MUSCULOSKELETAL: Admits to right ankle pain tingling sensations SKIN: Denies rash, lesions or sores. HEMATOLOGIC : Denies easy bruising or bleeding. LYMPHATIC: Denies swollen, enlarged glands. NEUROLOGICAL: Sharp needlelike pain in right foot s. PSYCHIATRIC: Denies anxiety or stress. Denies depression, suicidal ideation, or homicidal ideation. ALL OTHER SYSTEMS REVIEWED AND NEGATIVE. PHYSICAL EXAMINATION: GENERAL: Well-appearing, well-nourished and in no acute distress. HEAD: Atraumatic, normocephalic. EYES: Pupils equal round extraocular movements intact, conjunctiva are normal. ENT: Nares patent NECK: Normal range of motion LUNGS: No respiratory distress Musculoskeletal: Normal range of motion NEUROLOGICAL: Normal speech, normal gait. PSYCH: Normal mood, normal affect. SKIN: Warm, Dry, normal turgor, no rashes or lesions noted. Postsurgical changes noted sensation intact of the right foot Dictation was performed using [employer] voice recognition software Physical Exam - Vital signs Vitals: Temp Pulse Resp BP Pulse Ox 97.9 F 76 16 115/76 99 11/03/17 07:46 11/03/17 07:46 11/03/17 07:46 11/03/17 07:46 11/03/17 07:46 Course - Re-evaluation Re-evalutation: 11/03/17 08:10 This appears to be more related to a neuropathic pain. Patient will be treated with Neurontin, she is able to ambulate walk to the room and is medically stable for discharge\ After performing a Medical Screening Examination, I estimate there is LOW risk for INTRACRANIAL HEMORRHAGE, UNSTABLE SPINE FRACTURE, CENTRAL CORD SYNDROME, CAUDA EQUINA, THORACIC AORTIC DISSECTION, PNEUMOTHORAX, PERFORATED BOWEL, RUPTURED ABDOMINAL AORTIC ANEURYSM, ACUTE TENDON RUPTURE, COMPARTMENT SYNDROME, or OPEN FRACTURE, thus I consider the discharge disposition reasonable. Also, there is no evidence or peritonitis, sepsis, or toxicity. I have reevaluated this patient multiple times and no significant life threatening changes are noted. The patient and I have discussed the diagnosis and risks, and we agree with discharging home to follow-up with their primary doctor with the understanding that symptoms and presentations can change. We also discussed returning to the Emergency Department immediately if new or worsening symptoms occur. We have discussed the symptoms which are most concerning (e.g., bloody stool, fever, changing or worsening pain, vomiting) that necessitate immediate return. - Vital Signs Vital signs: Temp Pulse Resp BP Pulse Ox 97.9 F 76 16 115/76 99 11/03/17 07:46 11/03/17 07:46 11/03/17 07:46 11/03/17 07:46 11/03/17 07:46 Discharge - Discharge Clinical Impression: Paresthesia of right foot Right ankle pain Qualifiers: Chronicity: acute Qualified Code(s): M25.571 - Pain in right ankle and joints of right foot Condition: Stable Disposition: HOME, SELF-CARE Instructions: Neuropathy ([facility]) Additional Instructions: Follow up with your physician tomorrow for further care or return to the ED IMMEDIATELY if symptoms worsen or new concerns occur. If you cannot afford to follow up with your primary care physician a list of low cost clinics have been provided at the end of your discharge papers as well. Prescriptions: Gabapentin 300 mg PO BID #20 capsule
== END 2017-11-03 08:25 | disposition home or self-care (01) ==
LOC: ER 07:33
DX: R20.0 Anesthesia of skin (principal); M25.571 Pain in right ankle and joints of right foot
CPT/HCPCS: 99283; J3490

== ENCOUNTER 2018-02-28 08:51 | Emergency (ER) | payer MEDICAID ==
--- NOTE | 2018-02-28 09:20 | ER Document Report ---
HPI - HPI Patient complains to provider of: Vaginal discharge pelvic pain and some low back pain Onset: Last week Onset/Duration: Gradual Pain Level: 4 Context: 27-year-old female complaining of low back pain pelvic pain and vaginal discharge. She is concerned that she has bacterial vaginosis again because she did not complete the metronidazole in the past due to nausea. She does not think she has gonorrhea or chlamydia. No fever or chills. Associated Symptoms: None Exacerbated by: Denies Relieved by: Denies - ROS ROS below otherwise negative: Yes Systems Reviewed and Negative: Yes All other systems reviewed and negative - REPRODUCTIVE Reproductive: DENIES: :, Abnormal bleeding / discharge Past Medical History - General Information source: Patient - Social History Smoking Status: Current Every Day Smoker Chew tobacco use (# tins/day): No Frequency of alcohol use: None Drug Abuse: Marijuana Lives with: Family Family History: Reviewed & Not Pertinent Patient has suicidal ideation: No Patient has homicidal ideation: No Neurological Medical History: Reports: Hx Migraine Renal/ Medical History: Reports: Hx Ovarian Cysts. Denies: Hx Peritoneal Dialysis Psychiatric Medical History: Reports: Hx Anxiety Past Surgical History: Reports: Hx Appendectomy, Hx Section - x3, Hx Orthopedic Surgery - right ankle, Hx Tubal Ligation - Immunizations Immunizations up to date: Yes Hx Diphtheria, Pertussis, Tetanus Vaccination: Yes Vertical Provider Document - CONSTITUTIONAL Agree With Documented VS: Yes Exam Limitations: No Limitations - INFECTION CONTROL TRAVEL OUTSIDE OF THE [place] IN LAST 30 DAYS: No - HEENT HEENT: Normal ENT Exam - NECK Neck: Supple - RESPIRATORY Respiratory: Breath Sounds Normal, No Respiratory Distress - CARDIOVASCULAR Cardiovascular: Regular Rate, Regular Rhythm - GI/ABDOMEN Gastrointestinal: Abdomen Soft, Abdomen Tender - minimal suprapubic - BACK Back: Normal Inspection. negative: CVA Tenderness-Right, CVA Tenderness-Left - MUSCULOSKELETAL/EXTREMETIES Musculoskeletal/Extremeties: MAEW - NEURO Level of Consciousness: Awake, Alert - DERM Integumentary: Warm, Dry, No Rash Course - Re-evaluation Re-evalutation: 02/28/18 11:50 the swab was sent dry to lab, so they could not test for trichomonas. I discussed this with the patient since it looks like she has bacterial vaginosis I will treat with 2000 mg of metronidazole today with ENT nausea medication and then 500 twice daily for 5 more days. Patient wants to wait until the gonorrhea and Chlamydia test are back since her partner's tests are negative today. 02/28/18 11:53 - Vital Signs Vital signs: Temp Pulse Resp BP Pulse Ox 98.0 F 78 18 109/80 99 02/28/18 09:01 02/28/18 09:01 02/28/18 09:01 02/28/18 09:01 02/28/18 09:01 Discharge - Discharge Clinical Impression: Bacterial vaginosis, Mild pelvic pain Condition: Good Disposition: HOME, SELF-CARE Instructions: Pelvic Pain ([facility]), Vaginosis, Bacterial ([facility]) Additional Instructions: Call me in 2 hours for the gonorrhea and Chlamydia test of [phone] Nausea medication so that the metronidazole does not make you nauseous Return to the emergency room if symptoms worsen Prescriptions: Promethazine HCl [Phenergan 25 mg Tablet] 25 mg PO Q4HP PRN #30 tablet PRN Reason: Metronidazole 500 mg PO BID #10 tablet Forms: Return to Work
[2018-02-28 10:23] LABS: BACTERIA (WET MOUNT) 4+ BACTERIA SEEN; EPITHELIALS (WET MOUNT) 4+ EPITHELIALS SEEN; RBCS (WET MOUNT) 4+ RBCS SEEN; T.VAGINALIS (WET MOUNT) COULD NOT PERFORM; WBCS (WET MOUNT) RARE WBCS SEEN; YEAST (WET MOUNT) NO YEAST SEEN
[2018-02-28 10:32] LABS: APPEARANCE,URINE SLIGHTLY-CLOUDY; BILIRUBIN,URINE NEGATIVE (NEGATIVE); COLOR,URINE YELLOW; GLUCOSE, URINE NEGATIVE (NEGATIVE); KETONES,URINE NEGATIVE (NEGATIVE); LEUKOCYTE ESTERASE,URINE NEGATIVE (NEGATIVE); NITRITE,URINE NEGATIVE (NEGATIVE); PROTEIN,URINE NEGATIVE (NEGATIVE); URINE SPECIFIC GRAVITY 1.024; UROBILINOGEN,URINE NEGATIVE mg/dL (<2.0)
[2018-02-28] MEDS ORDERED: METRONIDAZOLE 500 MG TABLET PO ONE (11:50)
[2018-02-28] MEDS ORDERED: ONDANSETRON 4 MG TAB.RAPDIS PO ONE (11:50)
[2018-02-28 12:19] VITALS: BP 111/63
[2018-02-28 13:39] LABS: CHLAM PCR NOT DETECTED (NOT DETECT); GON PCR NOT DETECTED (NOT DETECT)
== END 2018-02-28 12:19 | disposition home or self-care (01) ==
LOC: ER 08:51
DX: N76.0 Acute vaginitis (principal); B96.89 Other specified bacterial agents as the cause of diseases classified elsewhere; R10.2 Pelvic and perineal pain; F17.200 Nicotine dependence, unspecified, uncomplicated; Z98.51 Tubal ligation status
CPT/HCPCS: 99284; 87086; 87210; 81025; 81001; 87491; 87591; S0119; J3490

== ENCOUNTER 2018-03-23 07:11 | Emergency (ER) | payer MEDICAID ==
[2018-03-23] MEDS ORDERED: FAMOTIDINE 20 MG TABLET PO ONE (07:27)
[2018-03-23] MEDS ORDERED: PREDNISONE 20 MG TABLET PO ONE (07:27)
--- NOTE | 2018-03-23 07:30 | ER Document Report ---
HPI - HPI Patient complains to provider of: skin rash, abd pain Onset/Duration: Gradual Quality of pain: Achy Context: Patient presents complaining of skin rash that she developed this morning that she attributes to recently starting Flagyl to treat bacterial vaginosis. Patient does complain of lower pelvic pain for the past 2 days with some dark vaginal bleeding. Patient states this is not her usual menstrual cycle. Patient denies any nausea vomiting diarrhea. Patient denies any fever. Patient denies difficulty breathing. Associated Symptoms: denies: Nonproductive cough, Productive cough, Earache, Fever, Nausea, Vomiting, Rhinnorhea Exacerbated by: Denies Relieved by: Denies Similar symptoms previously: No Recently seen / treated by doctor: No - ROS ROS below otherwise negative: Yes Systems Reviewed and Negative: Yes All other systems reviewed and negative - CONSTITUTIONAL Constitutional: DENIES: Fever, Chills - RESPIRATORY Respiratory: DENIES: Trouble Breathing, Coughing - GASTROINTESTINAL Gastrointestinal: REPORTS: Abdominal Pain. DENIES: Nausea, Patient vomiting, Diarrhea - URINARY Urinary: DENIES: Dysuria, Urgency - REPRODUCTIVE Reproductive: REPORTS: Abnormal bleeding / discharge. DENIES: : - MUSCULOSKELETAL Musculoskeletal: DENIES: Back Pain - DERM Skin Color: Normal Skin Problems: Rash Past Medical History - General Information source: Patient - Social History Smoking Status: Current Every Day Smoker Smoking Education Provided: Yes Frequency of alcohol use: None Drug Abuse: None Occupation: none Lives with: Family Family History: Reviewed & Not Pertinent Neurological Medical History: Reports: Hx Migraine Renal/ Medical History: Reports: Hx Ovarian Cysts. Denies: Hx Peritoneal Dialysis Psychiatric Medical History: Reports: Hx Anxiety Past Surgical History: Reports: Hx Appendectomy, Hx Section - x3, Hx Orthopedic Surgery - right ankle, Hx Tubal Ligation - Immunizations Immunizations up to date: Yes Hx Diphtheria, Pertussis, Tetanus Vaccination: Yes Vertical Provider Document - CONSTITUTIONAL Agree With Documented VS: Yes Exam Limitations: No Limitations General Appearance: WD/WN, No Apparent Distress - INFECTION CONTROL TRAVEL OUTSIDE OF THE [place] IN LAST 30 DAYS: No - HEENT HEENT: Atraumatic, Normocephalic - NECK Neck: Normal Inspection, Supple - RESPIRATORY Respiratory: Breath Sounds Normal, No Respiratory Distress - CARDIOVASCULAR Cardiovascular: Regular Rate, Regular Rhythm, No Murmur - GI/ABDOMEN Gastrointestinal: Abdomen Soft, Abdomen Tender - suprapubic, RUQ tenderness - REPRODUCTIVE Female Genitalia: Abnormal Inspection - Patient with vaginal foreign body ( tampon) removed, CMT. negative: Adnexal Pain-Right, Adnexal Pain-Left - BACK Back: Normal Inspection. negative: CVA Tenderness-Right, CVA Tenderness-Left - MUSCULOSKELETAL/EXTREMETIES Musculoskeletal/Extremeties: SANJUANA RAMIREZ - NEURO Level of Consciousness: Awake, Alert, Appropriate Motor/Sensory: No Motor Deficit - DERM Integumentary: Warm, Dry, Rash - Erythematous macular rash distributed to the upper extremities, bilateral thigh, groin area and periumbilical area Course - Re-evaluation Re-evalutation: 03/23/18 08:24 Tampon removed from the vaginal vault, patient states that it may have been in there 2-3 weeks. 03/23/18 08:40 Patient without any fever or leukocytosis. No skin desquamation. No concern for toxic shock syndrome at this time. Patient with cervical motion tenderness , will cover for PID. - Vital Signs Vital signs: Temp Pulse Resp BP Pulse Ox 97.9 F 93 16 110/59 L 99 03/23/18 07:17 03/23/18 07:17 03/23/18 07:17 03/23/18 07:17 03/23/18 07:17 - Laboratory Result Diagrams: 03/23/18 07:42 03/23/18 07:42 Laboratory results interpreted by me: 03/23/18 08:40 Labs- Entire Visit 03/23/18 03/23/18 03/23/18 07:42 07:42 08:00 WBC 6.6 RBC 4.74 Hgb 11.9 L Hct 36.4 MCV 77 L MCH 25.0 L MCHC 32.6 RDW 15.7 H Plt Count 209 Seg Neutrophils % 58.2 Lymphocytes % 32.2 Monocytes % 7.4 Eosinophils % 1.7 Basophils % 0.5 Absolute Neutrophils 3.8 Absolute Lymphocytes 2.1 Absolute Monocytes 0.5 Absolute Eosinophils 0.1 Absolute Basophils 0.0 Sodium 144.9 Potassium 4.1 Chloride 109 H Carbon Dioxide 21 L Anion Gap 15 BUN 14 Creatinine 0.62 Est GFR ( Amer) > 60 Est GFR (Non-Af Amer) > 60 Glucose 102 Calcium 9.8 Total Bilirubin 0.2 Direct Bilirubin 0.2 Neonat Total Bilirubin Not Reportable Neonat Direct Bilirubin Not Reportable Neonat Indirect Bili Not Reportable AST 16 ALT 27 Alkaline Phosphatase 50 Total Protein 6.8 Albumin 4.4 Lipase 57.4 Urine Color YELLOW Urine Appearance SLIGHTLY-CLOUDY Urine pH 5.0 Ur Specific [place] 1.029 Urine Protein NEGATIVE Urine Glucose (UA) NEGATIVE Urine Ketones NEGATIVE Urine Blood NEGATIVE Urine Nitrite NEGATIVE Urine Bilirubin NEGATIVE Urine Urobilinogen 2.0 H Ur Leukocyte Esterase TRACE H Urine WBC (Auto) 1 Urine RBC (Auto) 1 U Hyaline Cast (Auto) 1 Squamous Epi Cells Auto 6 Urine Mucus (Auto) MOD Urine Ascorbic Acid 40 H Urine HCG, Qual NEGATIVE Trichomonas (Wet Prep) Vaginal WBC Vaginal Yeast 03/23/18 08:00 WBC RBC Hgb Hct MCV MCH MCHC RDW Plt Count Seg Neutrophils % Lymphocytes % Monocytes % Eosinophils % Basophils % Absolute Neutrophils Absolute Lymphocytes Absolute Monocytes Absolute Eosinophils Absolute Basophils Sodium Potassium Chloride Carbon Dioxide Anion Gap BUN Creatinine Est GFR ( Amer) Est GFR (Non-Af Amer) Glucose Calcium Total Bilirubin Direct Bilirubin Neonat Total Bilirubin Neonat Direct Bilirubin Neonat Indirect Bili AST ALT Alkaline Phosphatase Total Protein Albumin Lipase Urine Color Urine Appearance Urine pH Ur Specific [place] Urine Protein Urine Glucose (UA) Urine Ketones Urine Blood Urine Nitrite Urine Bilirubin Urine Urobilinogen Ur Leukocyte Esterase Urine WBC (Auto) Urine RBC (Auto) U Hyaline Cast (Auto) Squamous Epi Cells Auto Urine Mucus (Auto) Urine Ascorbic Acid Urine HCG, Qual Trichomonas (Wet Prep) NO TRICHOMONAS SEEN Vaginal WBC RARE WBCS SEEN Vaginal Yeast NO YEAST SEEN Discharge - Discharge Clinical Impression: PID (acute pelvic inflammatory disease), Skin rash Vaginal foreign body Qualifiers: Encounter type: initial encounter Qualified Code(s): T19.2XXA - Foreign body in vulva and vagina, initial encounter Condition: Stable Disposition: HOME, SELF-CARE Instructions: Use of Diphenhydramine, Doxycycline ([facility]), Pelvic Inflammatory Disease ([facility]), Steroid Medication Additional Instructions: Return immediately for any new or worsening symptoms Followup with your primary care provider, call tomorrow to make a followup appointment You can discontinue the Flagyl Take Benadryl [id number] to help with your pruritus Prescriptions: Doxycycline Hyclate 100 mg PO BID #28 capsule Famotidine [Pepcid 20 mg Tablet] 20 mg PO BID #12 tablet Prednisone [Deltasone 10 mg Tablet] 10 mg PO ASDIR PRN #21 tablet PRN Reason: Forms: Smoking Cessation Education Referrals: STANISLAV GARZA MD [Primary Care Provider] - Follow up as needed [facility] [Provider Group] - Follow up as needed
[2018-03-23 07:48] LABS: ABSOLUTE EOSINOPHILS # (AUTO) 0.1 10^3/uL (0.0-0.6); ABSOLUTE LYMPHOCYTES (AUTO) 2.1 10^3/uL (0.5-4.7); ABSOLUTE MONOCYTES (AUTO) 0.5 10^3/uL (0.1-1.4); ABSOLUTE NEUT (AUTO) 3.8 10^3/uL (1.7-8.2); BASOPHILS % (AUTO) 0.5 % (0-2); EOSINOPHILS % (AUTO) 1.7 % (0-6); HEMATOCRIT 36.4 % (36.0-47.0); HEMOGLOBIN 11.9 g/dL (12.0-15.5); LYMPHOCYTES % (AUTO) 32.2 % (13-45); MEAN CORPUSCULAR HGB CONC 32.6 g/dL (32.0-36.0); MEAN CORPUSCULAR VOLUME 77 fl (80-97); MONOCYTES % (AUTO) 7.4 % (3-13); PLATELET COUNT 209 10^3/uL (150-450); RED BLOOD COUNT 4.74 10^6/uL (3.72-5.28); RED CELL DISTRIBUTION WIDTH 15.7 % (11.5-14.0); SEGMENTED NEUTROPHILS % (AUTO) 58.2 % (42-78); TOTAL CELLS COUNTED % (AUTO) 100 %; WHITE BLOOD COUNT 6.6 10^3/uL (4.0-10.5)
[2018-03-23 08:07] LABS: ALANINE AMINOTRANSFERASE 27 U/L (9-52); ALBUMIN 4.4 g/dL (3.5-5.0); ALKALINE PHOSPHATASE 50 U/L (38-126); ANION GAP 15 (5-19); ASPARTATE AMINO TRANSFERASE 16 U/L (14-36); BILIRUBIN,DIRECT 0.2 mg/dL (0.0-0.4); BILIRUBIN,TOTAL 0.2 mg/dL (0.2-1.3); BLOOD UREA NITROGEN 14 mg/dL (7-20); CALCIUM 9.8 mg/dL (8.4-10.2); CARBON DIOXIDE 21 mmol/L (22-30); CHLORIDE 109 mmol/L (98-107); GLUCOSE 102 mg/dL (75-110); LIPASE 57.4 U/L (23-300); POTASSIUM 4.1 mmol/L (3.6-5.0); SODIUM 144.9 mmol/L (137-145); TOTAL PROTEIN 6.8 g/dL (6.3-8.2)
[2018-03-23] MEDS ORDERED: CEFTRIAXONE INJ 250 MG VIAL IM ONE (08:16)
[2018-03-23] MEDS ORDERED: LIDOCAINE 1% INJ-PF (10 MG/ML) 30 ML SDV INJ ONE (08:16)
[2018-03-23] MEDS ORDERED: DOXYCYCLINE HYCLATE 100 MG TABLET PO ONE (08:16)
[2018-03-23 08:20] LABS: T.VAGINALIS (WET MOUNT) NO TRICHOMONAS SEEN; WBCS (WET MOUNT) RARE WBCS SEEN; YEAST (WET MOUNT) NO YEAST SEEN
[2018-03-23 08:34] LABS: APPEARANCE,URINE SLIGHTLY-CLOUDY; BILIRUBIN,URINE NEGATIVE (NEGATIVE); COLOR,URINE YELLOW; GLUCOSE, URINE NEGATIVE (NEGATIVE); KETONES,URINE NEGATIVE (NEGATIVE); LEUKOCYTE ESTERASE,URINE TRACE (NEGATIVE); NITRITE,URINE NEGATIVE (NEGATIVE); PROTEIN,URINE NEGATIVE (NEGATIVE); URINE SPECIFIC GRAVITY 1.029
[2018-03-23 08:51] VITALS: BP 107/69
[2018-03-23 09:51] LABS: CHLAM PCR NOT DETECTED (NOT DETECT); GON PCR NOT DETECTED (NOT DETECT)
== END 2018-03-23 08:50 | disposition home or self-care (01) ==
LOC: ER 07:11
DX: N73.9 Female pelvic inflammatory disease, unspecified (principal); T19.2XXA Foreign body in vulva and vagina, initial encounter; X58.XXXA Exposure to other specified factors, initial encounter; N76.0 Acute vaginitis; B96.89 Other specified bacterial agents as the cause of diseases classified elsewhere; R10.2 Pelvic and perineal pain; N93.9 Abnormal uterine and vaginal bleeding, unspecified; R21 Rash and other nonspecific skin eruption; F17.200 Nicotine dependence, unspecified, uncomplicated; Z87.42 Personal history of other diseases of the female genital tract; Z90.49 Acquired absence of other specified parts of digestive tract; Z98.51 Tubal ligation status
CPT/HCPCS: 99284; 96372; 36415; 87210; 83690; 85025; 81025; 80053; 81001; 87491; 87591; J3490 ×3; J7512; J0696

== ENCOUNTER 2018-03-24 11:36 | Emergency (ER) | payer MEDICAID ==
[2018-03-24 11:46] VITALS: BP 125/76
[2018-03-24] MEDS ORDERED: DIPHENHYDRAMINE HCL 50 MG/ML VIAL IV ONE (12:21)
[2018-03-24] MEDS ORDERED: FAMOTIDINE INJ/PF 20 MG/2 ML SDV IV ONE (12:21)
[2018-03-24] MEDS ORDERED: DEXAMETHASONE SOD PHOS INJ 10 MG/1 ML VIAL IV ONE (12:21)
--- NOTE | 2018-03-24 12:24 | ER Document Report ---
ED Medical Screen (RME) - General Chief Complaint: Pain All Over Stated Complaint: RASH,HEADACHE,NAUSEA,CHILLS Time Seen by Provider: 03/24/18 12:17 Notes: RAPID MEDICAL EVALUATION DISCLOSURE I have seen this patient as part of a Rapid Medical Evaluation and, if applicable, placed any initially appropriate orders. The patient will be seen and fully evaluated, including a full history and physical exam, by a provider ( in Main ED or Fast Track) when a room becomes available. 27-year-old female here with complaints of rash that started yesterday. The rash is described as all over her body, severe itching, and nearly resolved when she was seen here in the ER and given steroids and other medications. She reports that she was prescribed doxycycline "for toxic shock syndrome" because a tampon was discovered in her vagina yesterday during pelvic exam (she believes it has been "stuck in there for several months"). She did not get it filled because she does not have the money and is back today due to the worsening rash. She complains of some nausea and headaches but no other symptoms. EXAM Moderate urticarial type rash visualized on torso neck face and extremities CTAB RRR TRAVEL OUTSIDE OF THE U.S. IN LAST 30 DAYS: No - Related Data Allergies/Adverse Reactions: No Known Allergies Allergy (Verified 03/24/18 11:38) Past Medical History Neurological Medical History: Reports: Hx Migraine Renal/ Medical History: Reports: Hx Ovarian Cysts. Denies: Hx Peritoneal Dialysis Psychiatric Medical History: Reports: Hx Anxiety Past Surgical History: Reports: Hx Appendectomy, Hx Section - x3, Hx Orthopedic Surgery - right ankle, Hx Tubal Ligation - Immunizations Immunizations up to date: Yes Hx Diphtheria, Pertussis, Tetanus Vaccination: Yes Physical Exam - Vital signs Vitals: Temp Pulse Resp BP Pulse Ox 98.7 F 92 18 125/76 100 03/24/18 11:44 03/24/18 11:44 03/24/18 11:44 03/24/18 11:44 03/24/18 11:44 Course - Vital Signs Vital signs: Temp Pulse Resp BP Pulse Ox 98.7 F 92 18 125/76 100 03/24/18 11:44 03/24/18 11:44 03/24/18 11:44 03/24/18 11:44 03/24/18 11:44
[2018-03-24 13:13] LABS: ABSOLUTE LYMPHOCYTES (AUTO) 3.6 10^3/uL (0.5-4.7); ABSOLUTE MONOCYTES (AUTO) 0.5 10^3/uL (0.1-1.4); ABSOLUTE NEUT (AUTO) 7.8 10^3/uL (1.7-8.2); BASOPHILS % (AUTO) 0.1 % (0-2); EOSINOPHILS % (AUTO) 0.4 % (0-6); HEMATOCRIT 39.8 % (36.0-47.0); LYMPHOCYTES % (AUTO) 29.8 % (13-45); MEAN CORPUSCULAR HEMOGLOBIN 25.2 pg (27.0-33.4); MEAN CORPUSCULAR HGB CONC 32.7 g/dL (32.0-36.0); MEAN CORPUSCULAR VOLUME 77 fl (80-97); MONOCYTES % (AUTO) 4.4 % (3-13); PLATELET COUNT 241 10^3/uL (150-450); RED BLOOD COUNT 5.16 10^6/uL (3.72-5.28); RED CELL DISTRIBUTION WIDTH 15.7 % (11.5-14.0); SEGMENTED NEUTROPHILS % (AUTO) 65.3 % (42-78); TOTAL CELLS COUNTED % (AUTO) 100 %; WHITE BLOOD COUNT 11.9 10^3/uL (4.0-10.5)
[2018-03-24 13:35] LABS: ANION GAP 19 (5-19); BLOOD UREA NITROGEN 17 mg/dL (7-20); CARBON DIOXIDE 20 mmol/L (22-30); CHLORIDE 109 mmol/L (98-107); GLUCOSE 98 mg/dL (75-110); POTASSIUM 4.1 mmol/L (3.6-5.0); SODIUM 147.6 mmol/L (137-145)
--- NOTE | 2018-03-24 15:08 | ER Document Report ---
ED General - General Chief Complaint: Pain All Over Stated Complaint: RASH,HEADACHE,NAUSEA,CHILLS Time Seen by Provider: 03/24/18 12:17 Mode of Arrival: Ambulatory Information source: Patient, [facility] Records Notes: 27-year-old female presents with complaints of generalized rash itching. Patient notes she had symptoms yesterday came to the emergency department was treated and her symptoms are all gone by the time she left however when she was home for a few hours symptoms returned. Patient denies any new soaps detergents or foods. Patient notes she was placed on Flagyl last week however did not take any Flagyl last night and the symptoms TRAVEL OUTSIDE OF THE [place] IN LAST 30 DAYS: No - HPI Onset: Yesterday Onset/Duration: Intermittent Quality of pain: No pain Severity: Mild Pain Level: Denies Associated symptoms: Other Exacerbated by: Denies Relieved by: Denies Similar symptoms previously: Yes Recently seen / treated by doctor: Yes - Related Data Allergies/Adverse Reactions: No Known Allergies Allergy (Verified 03/24/18 11:38) Past Medical History - Social History Smoking Status: Current Every Day Smoker Cigarette use (# per day): Yes Chew tobacco use (# tins/day): No Smoking Education Provided: No Frequency of alcohol use: None Drug Abuse: Marijuana Family History: Reviewed & Not Pertinent Patient has suicidal ideation: No Patient has homicidal ideation: No Neurological Medical History: Reports: Hx Migraine Renal/ Medical History: Reports: Hx Ovarian Cysts. Denies: Hx Peritoneal Dialysis Psychiatric Medical History: Reports: Hx Anxiety Past Surgical History: Reports: Hx Appendectomy, Hx Section - x3, Hx Orthopedic Surgery - right ankle, Hx Tubal Ligation - Immunizations Immunizations up to date: Yes Hx Diphtheria, Pertussis, Tetanus Vaccination: Yes Review of Systems - Review of Systems Notes: REVIEW OF SYSTEMS: CONSTITUTIONAL : Denies fever, chills, or sweats. Denies recent illness. EENT: Denies eye, ear, throat, or mouth pain or symptoms. Denies nasal or sinus congestion or discharge. Denies throat, tongue, or mouth swelling or difficulty swallowing. CARDIOVASCULAR: Denies chest pain. Denies palpitations or racing or irregular heart beat. Denies ankle edema. RESPIRATORY: Denies cough, cold, or chest congestion. Denies shortness of breath, difficulty breathing, or wheezing. GASTROINTESTINAL: Denies abdominal pain or distention. Denies nausea, vomiting , or diarrhea. Denies blood in vomitus, stools, or per rectum. Denies black, tarry stools. Denies constipation. GENITOURINARY: Denies difficulty urinating, painful urination, burning, frequency, blood in urine, or discharge. FEMALE GENITOURINARY: Denies vaginal bleeding, heavy or abnormal periods, irregular periods. Denies vaginal discharge or odor. MUSCULOSKELETAL: Denies back or neck pain or stiffness. Denies joint pain or swelling. SKIN: Admits to rash HEMATOLOGIC : Denies easy bruising or bleeding. LYMPHATIC: Denies swollen, enlarged glands. NEUROLOGICAL: Denies confusion or altered mental status. Denies passing out or loss of consciousness. Denies dizziness or lightheadedness. Denies headache. Denies weakness or paralysis or loss of use of either side. Denies problems with gait or speech. Denies sensory loss, numbness, or tingling. Denies seizures. PSYCHIATRIC: Denies anxiety or stress. Denies depression, suicidal ideation, or homicidal ideation. ALL OTHER SYSTEMS REVIEWED AND NEGATIVE. PHYSICAL EXAMINATION: GENERAL: Well-appearing, well-nourished and in no acute distress. HEAD: Atraumatic, normocephalic. EYES: Pupils equal round and reactive to light, extraocular movements intact, conjunctiva are normal. ENT: Nares patent, oropharynx clear without exudates. Moist mucous membranes. NECK: Normal range of motion, supple without lymphadenopathy LUNGS: Breath sounds clear to auscultation bilaterally and equal. No wheezes rales or rhonchi. HEART: Regular rate and rhythm without murmurs ABDOMEN: Soft, nontender, nondistended abdomen. No guarding, no rebound. No masses appreciated. Female : deferred Musculoskeletal: Normal range of motion, no pitting or edema. No cyanosis. NEUROLOGICAL: Cranial nerves grossly intact. Normal speech, normal gait. Normal sensory, motor exams PSYCH: Normal mood, normal affect. SKIN: Generalized urticarial rash noted all throughout Dictation was performed using [employer] voice recognition software Physical Exam - Vital signs Vitals: Temp Pulse Resp BP Pulse Ox 98.7 F 92 18 125/76 100 03/24/18 11:44 03/24/18 11:44 03/24/18 11:44 03/24/18 11:44 03/24/18 11:44 Course - Re-evaluation Re-evalutation: 03/24/18 21:46 Patient's presentation most consistent with allergic dermatitis. Patient overall looks well is in no distress, she notes her symptoms have improved significantly after eating treated here. As well as when she was treated yesterday. Therefore I have low suspicion that this is any life-threatening issues there is no petechiae noted patient will be given further dosage of prednisone encouraged to follow-up with diver's tender for actual testing There is no airway compromise After performing a Medical Screening Examination, I estimate there is LOW risk for AIRWAY COMPROMISE, ANAPHYLAXIS, CELLULITIS, EPIGLOTTIS, or NECROTIZING FASCIITIS, thus I consider the discharge disposition reasonable. Also, there is no evidence or peritonitis, sepsis, or toxicity. I have reevaluated this patient multiple times and no significant life threatening changes are noted. The patient and I have discussed the diagnosis and risks, and we agree with discharging home with close follow-up with the understanding that symptoms and presentations can change. We also discussed returning to the Emergency Department immediately if new or worsening symptoms occur. We have discussed the symptoms which are most concerning (e.g., difficulty breathing or swallowing , fever, changing or worsening pain) that necessitate immediate return. - Vital Signs Vital signs: Temp Pulse Resp BP Pulse Ox 98.7 F 92 18 125/76 100 03/24/18 11:44 03/24/18 11:44 03/24/18 11:44 03/24/18 11:44 03/24/18 11:44 - Laboratory Result Diagrams: 03/24/18 12:49 03/24/18 12:49 Laboratory results interpreted by me: 03/24/18 03/24/18 12:49 12:49 WBC 11.9 H MCV 77 L MCH 25.2 L RDW 15.7 H Sodium 147.6 H Chloride 109 H Carbon Dioxide 20 L Discharge - Discharge Clinical Impression: Allergic dermatitis Condition: Stable Disposition: HOME, SELF-CARE Instructions: Contact Dermatitis ([facility]) Prescriptions: Prednisone [Deltasone 20 mg Tablet] 3 tab PO DAILY 5 Days tablet Referrals: BRUCE ZHOU MD [Primary Care Provider] - Follow up as needed
== END 2018-03-24 16:06 | disposition home or self-care (01) ==
LOC: ER 11:36
DX: L23.9 Allergic contact dermatitis, unspecified cause (principal); M79.1 Myalgia; R51 Headache; R11.0 Nausea; R68.83 Chills (without fever); F17.210 Nicotine dependence, cigarettes, uncomplicated; Z98.51 Tubal ligation status
CPT/HCPCS: 99283; 96374; 96375; 36415; 87040; 85025; 80048; J1200; S0028; J1100

== ENCOUNTER 2018-12-02 16:19 | Emergency (ER) | payer MEDICAID ==
[2018-12-02] MEDS ORDERED: OXYCODONE-ACETAMINOPHEN 5-325 MG TABLET PO ONE (17:04)
[2018-12-02] MEDS ORDERED: ONDANSETRON 4 MG TAB.RAPDIS PO ONE (17:04)
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
[2018-12-02] MEDS ORDERED: LIDOCAINE 4%/TETRACAINE 0.5%/EPI 0.18% 5 ML TOPICAL SOLN TOP ONE (18:54)
[2018-12-02] MEDS ORDERED: LIDOCAINE 1% INJ-PF (10 MG/ML) 30 ML SDV INJ ONE (18:54)
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
[2018-12-02 20:41] VITALS: BP 102/77
== END 2018-12-02 20:49 | disposition home or self-care (01) ==
LOC: ER 16:19
DX: S02.2XXA Fracture of nasal bones, initial encounter for closed fracture (principal); S01.21XA Laceration without foreign body of nose, initial encounter; S05.11XA Contusion of eyeball and orbital tissues, right eye, initial encounter; Y09 Assault by unspecified means; Y92.009 Unspecified place in unspecified non-institutional (private) residence as the place of occurrence of the external cause; F17.200 Nicotine dependence, unspecified, uncomplicated
CPT/HCPCS: 99284; 70450; 70486; 12011; S0119; J3490 ×2

== ENCOUNTER 2018-12-11 11:57 | Emergency (ER) | payer MEDICAID ==
[2018-12-11 12:21] VITALS: BP 115/74
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
== END 2018-12-11 12:48 | disposition home or self-care (01) ==
LOC: ER 11:57
DX: S01.21XD Laceration without foreign body of nose, subsequent encounter (principal); X58.XXXD Exposure to other specified factors, subsequent encounter; F17.200 Nicotine dependence, unspecified, uncomplicated; Z98.51 Tubal ligation status
CPT/HCPCS: 99281

== ENCOUNTER 2019-08-08 17:31 | Emergency (ER) | payer MEDICAID ==
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
--- NOTE | 2019-08-08 21:37 | RADIOLOGY REPORT (SQ) ---
EXAM DESCRIPTION: XR HAND 3 OR MORE VIEWS COMPLETED DATE/TME: 08/08/2019 21:06 CLINICAL HISTORY: 29 years, Female, pain Findings: There is a mildly displaced fifth metacarpal distal fracture noted. Mild associated soft tissue swelling. No dislocation. IMPRESSION: Fifth metacarpal boxer's type fracture.
[2019-08-08] MEDS ORDERED: HYDROCODONE/ACETAMINOPHEN 7.5-325 MG TABLET PO ONE (22:08)
[2019-08-08] MEDS ORDERED: HYDROCODONE/ACETAMINOPHEN 7.5-325 MG TABLET ONE (23:17)
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
[2019-08-09 01:50] VITALS: BP 110/69
== END 2019-08-09 02:11 | disposition home or self-care (01) ==
LOC: ER 17:31
DX: S01.111A Laceration without foreign body of right eyelid and periocular area, initial encounter (principal); H11.31 Conjunctival hemorrhage, right eye; R51 Headache; Y04.2XXA Assault by strike against or bumped into by another person, initial encounter; Y92.009 Unspecified place in unspecified non-institutional (private) residence as the place of occurrence of the external cause; S62.338A Displaced fracture of neck of other metacarpal bone, initial encounter for closed fracture; M79.641 Pain in right hand; W22.8XXA Striking against or struck by other objects, initial encounter; Y92.481 Parking lot as the place of occurrence of the external cause; Z87.891 Personal history of nicotine dependence
CPT/HCPCS: 70450; 99284

== ENCOUNTER 2019-08-24 15:17 | Emergency (ER) | payer MEDICAID ==
[2019-08-24 16:52] LABS: ABSOLUTE BASOPHILS # (AUTO) 0.1 10^3/uL (0.0-0.2); ABSOLUTE EOSINOPHILS # (AUTO) 0.1 10^3/uL (0.0-0.6); ABSOLUTE LYMPHOCYTES (AUTO) 3.1 10^3/uL (0.5-4.7); ABSOLUTE MONOCYTES (AUTO) 0.6 10^3/uL (0.1-1.4); BASOPHILS % (AUTO) 0.7 % (0-2); EOSINOPHILS % (AUTO) 1.5 % (0-6); HEMATOCRIT 39.5 % (36.0-47.0); HEMOGLOBIN 12.7 g/dL (12.0-15.5); LYMPHOCYTES % (AUTO) 39.7 % (13-45); MEAN CORPUSCULAR HEMOGLOBIN 26.2 pg (27.0-33.4); MEAN CORPUSCULAR HGB CONC 32.1 g/dL (32.0-36.0); MEAN CORPUSCULAR VOLUME 81 fl (80-97); MONOCYTES % (AUTO) 7.3 % (3-13); PLATELET COUNT 244 10^3/uL (150-450); RED BLOOD COUNT 4.85 10^6/uL (3.72-5.28); SEGMENTED NEUTROPHILS % (AUTO) 50.8 % (42-78); TOTAL CELLS COUNTED % (AUTO) 100 %; WHITE BLOOD COUNT 7.9 10^3/uL (4.0-10.5)
[2019-08-24 17:14] LABS: ACETAMINOPHEN < 10 ug/mL (10-30); ALBUMIN 4.8 g/dL (3.5-5.0); ALCOHOL < 10 mg/dL (NONE DETECTED); ALKALINE PHOSPHATASE 64 U/L (38-126); ANION GAP 12 (5-19); ASPARTATE AMINO TRANSFERASE 20 U/L (14-36); BILIRUBIN,DIRECT 0.1 mg/dL (0.0-0.4); BILIRUBIN,TOTAL 0.6 mg/dL (0.2-1.3); BLOOD UREA NITROGEN 15 mg/dL (7-20); CALCIUM 9.9 mg/dL (8.4-10.2); CARBON DIOXIDE 23 mmol/L (22-30); CHLORIDE 105 mmol/L (98-107); GLUCOSE 108 mg/dL (75-110); POTASSIUM 3.9 mmol/L (3.6-5.0); SALICYLATE < 1.0 mg/dL (2.0-20.0); TOTAL PROTEIN 7.5 g/dL (6.3-8.2)
[2019-08-24 17:39] LABS: APPEARANCE,URINE SLIGHTLY-CLOUDY; BILIRUBIN,URINE NEGATIVE (NEGATIVE); GLUCOSE, URINE NEGATIVE (NEGATIVE); KETONES,URINE 20 mg/dL (NEGATIVE); LEUKOCYTE ESTERASE,URINE NEGATIVE (NEGATIVE); NITRITE,URINE NEGATIVE (NEGATIVE); PROTEIN,URINE 30 mg/dL (NEGATIVE); URINE SPECIFIC GRAVITY 1.029
[2019-08-24 17:40] LABS: COLOR,URINE YELLOW
--- NOTE | 2019-08-24 17:47 | RADIOLOGY REPORT (SQ) ---
EXAM DESCRIPTION: HAND RIGHT 3 VIEWS COMPLETED DATE/TIME: 08/24/2019 5:37 pm REASON FOR STUDY: swelling, bruising to right index finger COMPARISON: 08/08/2019 EXAM PARAMETERS: NUMBER OF VIEWS: Three views. TECHNIQUE: AP, lateral and oblique radiographic images acquired of the right hand. LIMITATIONS: None. FINDINGS: MINERALIZATION: Normal. BONES: Re- demonstration of a mildly angulated fracture of the 5th metacarpal neck. Possible nondisp laced longitudinal fracture of the volar base of the 2nd digit middle phalanx. JOINTS: No effusions. SOFT TISSUES: Mild circumferential swelling of the 2nd digit. OTHER: No other significant finding. IMPRESSION: 1. 2nd digit soft tissue swelling with likely underlying nondisplaced longitudinal frac ture of the base of the middle phalanx. 2. Grossly stable appearance of a previously diagnosed 5th metacarpal neck fracture. TECHNICAL DOCUMENTATION: JOB ID: [id number] [employer]- All Rights Reserved Reading location - IP/workstation name: [email or web address]
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
[2019-08-24 17:55] LABS: URINE BARBITURATES SCREEN NEGATIVE; URINE BENZODIAZEPINES SCREEN NEGATIVE; URINE COCAINE SCREEN NEGATIVE; URINE MARIJUANA (THC) SCREEN UNCONFIRMED POSITIVE; URINE METHADONE SCREEN NEGATIVE; URINE PHENCYCLIDINE SCREEN NEGATIVE
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
[2019-08-25 09:39] VITALS: BP 104/73
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
--- NOTE | 2019-08-26 00:26 | EKG REPORT ---
SEVERITY:- OTHERWISE NORMAL ECG - SINUS ARRHYTHMIA, RATE [id number] : Confirmed by: Luzmaria Carey 26-Aug-2019 00:25:52
== END 2019-08-25 15:20 | disposition home or self-care (01) ==
LOC: ER 15:17
DX: S62.600A Fracture of unspecified phalanx of right index finger, initial encounter for closed fracture (principal); M79.644 Pain in right finger(s); M54.2 Cervicalgia; Y04.2XXA Assault by strike against or bumped into by another person, initial encounter; Z63.0 Problems in relationship with spouse or partner; Z59.8 Other problems related to housing and economic circumstances; S62.366A Nondisplaced fracture of neck of fifth metacarpal bone, right hand, initial encounter for closed fracture; S20.412A Abrasion of left back wall of thorax, initial encounter; X58.XXXA Exposure to other specified factors, initial encounter; F17.200 Nicotine dependence, unspecified, uncomplicated; F12.10 Cannabis abuse, uncomplicated; F32.9 Major depressive disorder, single episode, unspecified
CPT/HCPCS: 93005; 36415; 80307 ×5; 85025; 81025; 80053; 81001; 73130; 72125; 93010; G0480; 99285